=== PATIENT | female | born 1975 | race Caucasian/White ===

== ENCOUNTER → 2017-05-02 | Outpatient (CLI) | payer BC | LOC: COL.RAD 09:35 | DX: K80.20 Calculus of gallbladder without cholecystitis without obstruction (principal); K76.0 Fatty (change of) liver, not elsewhere classified; R16.0 Hepatomegaly, not elsewhere classified ==

== ENCOUNTER → 2017-07-04 | Outpatient (CLI) | payer BC | LOC: MC.RAD 13:09 | DX: Z12.31 Encounter for screening mammogram for malignant neoplasm of breast (principal) ==

== ENCOUNTER 2017-08-01 05:06 | Day surgery (SDC) | payer BC ==
[~2017-08-01] VITALS: Ht 172.7 cm; Wt 96.4 kg
[2017-08-01 06:05] VITALS: BP 129/88; PULSE 73; TEMP 97.9
[2017-08-01] MEDS ORDERED: ZYRTEC 10MG10 MG PO (06:14)
[2017-08-01] MEDS ORDERED: NEURONTIN300 MG/CAP PO (06:14)
[2017-08-01] MEDS ORDERED: PROTONIX 40MG T40 MG PO (06:15)
[2017-08-01] MEDS ORDERED: NASACORT OTC NS (06:19)
[2017-08-01] MEDS ORDERED: CANNABIDIOL PO (06:20)
[2017-08-01] MEDS ORDERED: NORCO 325 MG-51 TAB PO (08:00)
[2017-08-01 08:45] VITALS: BP 123/66; PULSE 59; TEMP 97.1
[2017-08-01 09:00] VITALS: BP 108/71; PULSE 58
[2017-08-01 09:15] VITALS: BP 116/75; PULSE 66
[2017-08-01 09:30] VITALS: BP 110/71; PULSE 59
[2017-08-01 10:00] VITALS: BP 99/68; PULSE 58
== END 2017-08-01 10:40 | disposition home or self-care (01) ==
LOC: SDCO 05:06
DX: K80.10 Calculus of gallbladder with chronic cholecystitis without obstruction (principal); K21.9 Gastro-esophageal reflux disease without esophagitis; G89.29 Other chronic pain; M54.5 Low back pain; G43.909 Migraine, unspecified, not intractable, without status migrainosus; Z83.3 Family history of diabetes mellitus; Z82.49 Family history of ischemic heart disease and other diseases of the circulatory system
CPT/HCPCS: J0330; J0690; J1100; J1885; J2250; J2405; J2704; J2710; J3010; J7030

== ENCOUNTER → 2018-06-19 | Outpatient (CLI) | payer BC ==
[~2018-06-19] MED LIST: CANNABIDIOL PO; NASACORT OTC NS; NEURONTIN300 MG/CAP PO; NORCO 325 MG-51 TAB PO; PROTONIX 40MG T40 MG PO; ZYRTEC 10MG10 MG PO
== END ==
LOC: COL.RAD 06-05 12:45
DX: R10.31 Right lower quadrant pain (principal)

== ENCOUNTER → 2019-12-24 | Outpatient (CLI) | payer BC | LOC: MC.RAD 12-03 09:15 | DX: Z12.31 Encounter for screening mammogram for malignant neoplasm of breast (principal) ==

== ENCOUNTER 2020-08-13 04:58 | Day surgery (SDC) | payer BC ==
[~2020-08-13] VITALS: Ht 172.7 cm; Wt 100.5 kg
[2020-08-13] MEDS ORDERED: [UNRECOGNIZED DRUG - OTHER] PO (05:46)
[2020-08-13] MEDS ORDERED: XYZAL5 MG PO (05:47)
[2020-08-13] MEDS ORDERED: MELATONIN5 M1 SL (05:48)
[2020-08-13] MEDS ORDERED: SEASONIQUE1 TAB (05:50)
[2020-08-13] MEDS ORDERED: MULTIVITAMIN200 MCG PO (05:50)
[2020-08-13 06:15] VITALS: BP 127/68; PULSE 75; TEMP 98.3
[2020-08-13] MEDS ORDERED: PERCOCET 325 MG1 TA2 PO (08:53)
[2020-08-13] MEDS ORDERED: MOTRIN 800800 MG/TAB PO (08:53)
[2020-08-13 10:04] VITALS: BP 134/56; PULSE 60; TEMP 97.8
[2020-08-13 10:34] VITALS: BP 135/72; PULSE 63; TEMP 97.7
[2020-08-13 11:34] VITALS: BP 122/72; PULSE 65; TEMP 97.7
[2020-08-13 12:34] VITALS: BP 136/75; PULSE 88; TEMP 97.6
--- NOTE | 2020-08-13 16:49 | NUR ---
1000 PT RECEIVED FROM O.R. NO S/S OF DISTRESS NOTED NOTED. PT DENIES PAIN. PT STATES HER ABDOMEN FEELS SORE. 4 LAP SITES NOTED TO THE ABDOMEN, SABINA, INCISIONS CLOSED W/ GLUE. DANIEL PAD DRY AND INTACT. PAULSON CATHETER DRAINING CLEAR YELLOW URINE. SPOUSE AT THE BEDSIDE. PT CONNECTED TO 2L OF OXYGEN VIA NC. VITAL SIGNS STABLE. PT ORIENTED TO ROOM. CALL LIGHT IN REACH. BED IN LOW POSITION. COMFORT MEASURES IN PLACE. WILL CONTINUE TO MONITOR.
[2020-08-13 20:00] VITALS: BP 137/67; PULSE 82; TEMP 97.3
--- NOTE | 2020-08-13 21:00 | NUR ---
PT AMBULATED IN HALLWAY WITH STAFF, GAIT STEADY. DENIES PAIN. BACK TO ROOM AND TO BED. HAD PREVIOUSLY BEEN UP IN CHAIR SINCE SHIFT CHANGE. IVF INFUSING TO LEFT HAND, NO REDNESS OR SWELLING. REPORTS PASSING GAS. PAULSON TO BSD WITH YELLOW URINE. WILL MONITOR FOR CHANGES.
[2020-08-14 00:42] VITALS: BP 136/78; PULSE 71; TEMP 98.1
[2020-08-14 04:43] VITALS: BP 136/74; PULSE 79; TEMP 98.1
--- NOTE | 2020-08-14 05:55 | NUR ---
DC'D PAULSON CATHETER AFTER DEFLATING BALLOON. PT TOLERATED WITHOUT PROBLEM. HAS SCANT DRAINAGE ON DANIEL PAD. ASSISTED TO BATHROOM AT THIS TIME.
[2020-08-14 08:00] VITALS: BP 121/67; PULSE 80; TEMP 97.4
--- NOTE | 2020-08-14 09:52 | NUR ---
PT DISCHARGED AT THIS TIME. NO S/S OF DISTRESS NOTED. PT DENIES PAIN. DISCHARGE INSTRUCTIONS REVIEWED WITH PT, PT VOICE NO CONCERNS. ALL QUESTIONS ANSWERED. IV DISCONTINUED. PT SPOUSE AT THE BEDSIDE AND WILL TRANSPORT HER HOME.
== END 2020-08-14 10:06 | disposition home or self-care (01) ==
LOC: SDCO 04:58 → SURG 10:00 → SDCO 08-14 10:06
DX: D25.1 Intramural leiomyoma of uterus (principal); N94.6 Dysmenorrhea, unspecified; K21.9 Gastro-esophageal reflux disease without esophagitis; E66.9 Obesity, unspecified; Z68.34 Body mass index [BMI] 34.0-34.9, adult; Z20.822 Contact with and (suspected) exposure to COVID-19; Z79.3 Long term (current) use of hormonal contraceptives; Z79.899 Other long term (current) drug therapy
CPT/HCPCS: OP; J0690; J1170; J1885; J2405; J2704; J2710; J3010; J7120

== ENCOUNTER → 2020-11-17 | Outpatient (CLI) | payer BC ==
[~2020-11-17] MED LIST changes: +MELATONIN5 M1 SL; +MOTRIN 800800 MG/TAB PO; +MULTIVITAMIN200 MCG PO; +PERCOCET 325 MG1 TA2 PO; +SEASONIQUE1 TAB; +XYZAL5 MG PO; +[UNRECOGNIZED DRUG - OTHER] PO
== END ==
LOC: MC.RAD 11-12 07:00
DX: R92.2 Inconclusive mammogram (principal)

== ENCOUNTER → 2023-08-23 | Outpatient (CLI) | payer BC | LOC: MC.RAD 09:49 | DX: Z12.31 Encounter for screening mammogram for malignant neoplasm of breast (principal) ==

== ENCOUNTER → 2023-10-11 | Outpatient (CLI) | payer BC | LOC: COL.RAD 08:53 | DX: M51.27 Other intervertebral disc displacement, lumbosacral region (principal); M54.16 Radiculopathy, lumbar region ==